=== PATIENT | female | born 1955 | race Caucasian/White ===

== ENCOUNTER 2022-12-31 09:18 | Outpatient (AMB) | payer MEDICARE, OTHER, SELFPAY ==
--- NOTE | 2022-12-31 09:27 | MHC.OFFVIS ---
Intake Vital Signs 12/31/22 09:35 Height 5 ft 7 in Weight 169 lb 15.622 oz BMI 26.6 BP 124/74 Blood Pressure Location Rt brachial Position Sitting Pulse 85 Pulse Source Pulse Oximeter Intake Visit Reasons: Dm2 Intake Note: New patient present today for Diabetes Mellitus. Patient receives [email or web address] stephanie 2 supplies through [employer]. Last Diabetic Eye exam: Due for exam, needs to control blood sugars before next appointment. Last Podiatry Visit: Does not see a Feller Operator Random Glucose: 252 mg/dl HgA1C: 9.6% Patient reports she tried and failed Invokana and Januiva. Solutions Architect Consultant Required: No Accompanied by: Self / Same As Patient Allergies propoxyphene Adverse Reaction (Severe, Verified 12/31/22 09:37) Unknown codeine Adverse Reaction (Intermediate, Verified 12/31/22 09:37) Sweats, Nightmares metformin Adverse Reaction (Unknown, Verified 12/31/22 10:00) Vomiting STERI STRIPS Adverse Reaction (Unknown, Uncoded 12/31/22 09:37) Giant Blisters Medication List - Last Reconciled 12/31/22 by Adrian Russell MD acyclovir 400 mg PO TID blood sugar diagnostic (OneTouch Ultra Test strips) As directed candesartan 8 mg PO DAILY ibuprofen 800 mg PO TID insulin aspart U-100 (Novolog FlexPen U-100 Insulin aspart) 10 - 14 units subcut TID oxybutynin chloride ER 10 mg PO DAILY simvastatin 40 mg PO BEDTIME zolpidem 5 mg PO BEDTIME PRN HPI HPI Comments History of Present Illness Details 67 YO F who is seen in consultation for T2DM at the request of PCP. Initially diagnosed with T2DM in since 2009. Never saw endo Was initially started on treatment with metformin and glipizide .lost too much and nausea and had to stop Current regimen NPH 50 units at night . stopped . Novolog 10-14 units before meals started 3 mos ago Per the CGM Stephanie CGMS is active 80 % of time . data the patient's predicted A1C is []% which is compared to the patients previous A1C [] dated []. Avg glucose is 281 . Variability of The patient's blood sugars were in target 3% of the time, above target 97% of the time, and below target 0% of the time. Pattern shows point cares dropping overnight but rising after breakfast and after dinner Reports low sugars rare . Treats lows with drink juice . Does not recheck Most recent A1C 9,2 , Family history of T2DM in parents and brothers have Type 2 DM . Has eyes checked yearly, last eye exam 09/2021 needs to make appt , denies retinopathy. Has neuropathy,not sees podiatry. Denies nephropathy, on AL/ARB Has HLD, on statin. . Denies CAD. Not Had diabetes education. [facility] Medical History (Updated 12/31/22 @ 09:59 by Adrian Russell MD) Uncontrolled type 2 diabetes mellitus with hyperglycemia Surgical History History of bilateral tubal ligation History of section History of colon resection History of surgery History of surgery History of surgery History of surgery History of surgery Hx of appendectomy Hx of cholecystectomy Hx of rectal sphincterotomy Hx of shoulder surgery Hx of tonsillectomy Hx of total hysterectomy Family History Mother Diabetes Macular degeneration disease Father Diabetes Crohn's disease Colitis Social History (Updated 12/27/22 @ 11:55 by KAIT Marshall) Alcohol intake: current Alcohol intake frequency: holidays/special occasions only Patient Tobacco Use Status: Never used Tobacco Physical Exam Vital Signs: Last Vital Signs Pulse 85 12/31/22 09:35 BP 124/74 12/31/22 09:35 BMI result Body Mass Index 26.6 Absence of Cushingoid features. Absence of acromegalic features. Neck exam reveals nl size thyroid about 15 gms. No thyroid nodules palpable. No carotid bruits present. Lungs CTA. Heart S1 S2, Reg R/R. No M/R/ G. Skin exam reveals absence of vitiligo or acanthosis nigricans. Abdominal exam reveals Soft NT/ND with NA BS. No organomegaly present. Neck Other: . Extrem Other: Visual exam of foot performed. No ulcerations or open lesions. No onchomycosis, no callouses.Pulses 2 + distally Sensation intact to monofilament exam. Vibratory sensation sensed is intact with 128 Hz tuning fork Results AMB Hemoglobin A1c AMB Hemoglobin A1c 9.6 % Last Edit by KAIT Marshall on 12/31/22 10:14 Results Reviewed Results Reviewed: 12/31/22 10:05 Glucose, Whole Blood Routine Laboratory Last Values Glucose (Clinic) 252 mg/dL (60-115) H 12/31/22 10:05 Assessment & Plan Assessment & Plan (1) Uncontrolled type 2 diabetes mellitus with hyperglycemia: Code(s): E11.65 - Type 2 diabetes mellitus with hyperglycemia Plan: This 67 year old female with history of type 2 diabetes being treated with NovoLog insulin and previous intermediate acting insulin NPH with poor glycemic control and no known microvascular or macrovascular complication. Plan is to have the patient scan more frequently with the Stephanie. Will switch Stephanie 3. Will initiate Mounjaro 2.5 mg Q weekly and titrate as tolerated. Went over side effects of Mounjaro including but not limited to nausea, vomiting rare risk of pancreatitis. Will also start Tresiba 20 units HS. Could consider reinitiating metformin and/or an SGLT 2 inhibitor in the future. Will also use correction NovoLog for point care >200 as needed Will schedule patient with certified adapted physical educator and skin toggler. Went over correlation of poor glycemic control with development and progression of complications Mounjaro 2.5 mg samples given to patient lot number [id number] and Tresiba U 100 samples given to patient lot number [id number] expiration date 08/20/2024 Orders: Orders AMB Hemoglobin A1c Today E11.65 - Type 2 diabetes mellitus with hyperglycemia Referrals Diabetes Education Referral E11.65 - Type 2 diabetes mellitus with hyperglycemia Nutrition/Dietitian Referral E11.65 - Type 2 diabetes mellitus with hyperglycemia Medications: New insulin degludec (Tresiba FlexTouch U-100 insulin) 20 units (0.2 mL) subcut BEDTIME 15 mL 4RF tirzepatide (Mounjaro) 2.5 mg (0.5 mL) subcut QWEEK 4 weeks 2 mL 0RF blood-glucose sensor ([employer] Stephanie 3 Sensor device) As directed change every 14 days 2 ea 5RF Coding Level of Care Code New Pt Level 5 (59029) Diagnoses Uncontrolled type 2 diabetes mellitus with hyperglycemia E11.65 Time Spent (min) 60 Comment A total of 60 minutes was spent reviewing chart, seeing patient and dictating
[2022-12-31 09:35] VITALS: BP 124/74; PULSE 85; BMI 26.6
[2022-12-31 10:11] LABS: Glucose, Whole Blood 252 mg/dL (60-115)
== END 2022-12-31 15:19 | disposition home or self-care (01) ==
PROVIDERS: PCP Internal Medicine; Visit Provider Internal Medicine Endocrinology, Diabetes & Metabolism
DX: E11.65 Type 2 diabetes mellitus with hyperglycemia (principal); Z79.4 Long term (current) use of insulin
CPT/HCPCS: 99205

== ENCOUNTER → 2022-12-31 09:18 | Outpatient (BNVA) | payer OTHER, MEDICARE, SELFPAY | PROVIDERS: Visit Provider Internal Medicine Endocrinology, Diabetes & Metabolism | DX: E11.65 Type 2 diabetes mellitus with hyperglycemia (principal); Z83.3 Family history of diabetes mellitus; Z79.4 Long term (current) use of insulin | CPT/HCPCS: 82947; 83036 ==

== ENCOUNTER 2023-01-20 14:07 | Outpatient (AMB) | payer OTHER, MEDICARE, SELFPAY ==
--- NOTE | 2023-01-20 15:08 | MHC.AMDMED ---
Intake Intake Visit Reasons: DM Pleat Patternmaker Required: No Accompanied by: Self / Same As Patient Allergies propoxyphene Adverse Reaction (Severe, Verified 12/31/22 09:37) Unknown codeine Adverse Reaction (Intermediate, Verified 12/31/22 09:37) Sweats, Nightmares metformin Adverse Reaction (Unknown, Verified 12/31/22 10:00) Vomiting STERI STRIPS Adverse Reaction (Unknown, Uncoded 12/31/22 09:37) Giant Blisters HPI Comprehensive Diabetes Asmnt Most Recent Diabetes Results: No Data to Display [facility] Medical History (Updated 12/31/22 @ 09:59 by Adrian Russell MD) Uncontrolled type 2 diabetes mellitus with hyperglycemia Surgical History History of bilateral tubal ligation History of section History of colon resection History of surgery History of surgery History of surgery History of surgery History of surgery Hx of appendectomy Hx of cholecystectomy Hx of rectal sphincterotomy Hx of shoulder surgery Hx of tonsillectomy Hx of total hysterectomy Family History Mother Diabetes Macular degeneration disease Father Diabetes Crohn's disease Colitis Social History Alcohol intake: current Alcohol intake frequency: holidays/special occasions only Patient Tobacco Use Status: Never used Tobacco Assessment & Plan Assessment & Plan (1) Uncontrolled type 2 diabetes mellitus with hyperglycemia: Code(s): E11.65 - Type 2 diabetes mellitus with hyperglycemia Plan: Learning objectives: The patient was provided with verbal and written education on the following topics as outlined below. Patient questions/concerns, patient reports she has had diabetes for 15-20 years, however states she was in denial for approximately 10 years. Last A1c on 12/31/2022 9.6% At last visit patient was started on Mounjaro 2.5 mg, Tresiba 20 units, patient stated Dr. Russell also has trended reinitiate metformin but patient did not due to GI side effects in the past. Currently reports she has been experiencing nausea and diarrhea. Has completely lost the desire for food. Would like to continue on Mounjaro 2.5 mg for now to see if her body will tolerate medication. Reports that when her glucose level drops below 150 mg/dL she begins to experience symptoms of hypoglycemia. She has been using Stephanie 3 to test glucose Patient's average glucose for the past 2 weeks 152 mg/dL 15% above target 85% at target 0% below target Because she has been experiencing symptoms of hypoglycemia recommended at this visit that she temporarily reduce Tresiba 20 units to Tresiba 15 units to see if that eliminates symptoms. Instructed patient once her body to acclimates to lower average glucose she can increase Tresiba back to 20 units The patient met all learning objectives and was able to verbalize understanding and provide teach back of education topics discussed . The patient was provided with the opportunity to ask questions and all questions were answered. Topics covered in today?s session included: Medications (If applicable) ? Name of medication? Dosing/administration instructions? Mechanism of action? Potential side effects? Potential adverse reaction and appropriate treatment? Review onset, peak, duration Assess for concerns re: insurance coverage, cost, barriers to compliance Insulin/Injectables (If applicable) ? Storage/care of insulin? Injection sites? Site rotation? Onset, peak, duration ? Drawing up insulin? Injecting insulin/other injectables? Sharps disposal Continuous blood glucose monitoring (if applicable) Hypoglycemia and Hyperglycemia ? Signs and symptoms? Causes? Treatment? Preventing hypoglycemia? When to seek medical attention ?Blood glucose targets and how you feel when your blood glucose is in and out of your target ranges. ?Monitoring and knowing your A1C. ?What can make blood glucose go up and down and preventing high and low blood glucose. ?Review of blood sugar targets in expected goal range and outside of expected goal range. ?Problem solving and preventing hyper/hypoglycemia. ?Sick day management of diabetes. ?Using blood sugar results in decision making process in managing diabetes. ?Patient was receptive to information provided and participated in the discussion. Asked?appropriate questions and demonstrated good understanding of the topics discussed.? ? Educational Materials: The patient was provided with the following written educational materials: Target Goal handout Smart Goal: Patient will continue with Mounjaro for 2 weeks, to see if GI side effects improved Patient given sample of Stephanie 3 sensor, while waiting for insurance to approve Dexcom G6 sensor Instructed patient if she needs assistance setting up Dexcom G6 to make appointment with simulation educator Patient Instructions: Follow-up with simulation educator in 6 weeks Coding Level of Care Code Est Pt Level 1 (26695) Diagnoses Uncontrolled type 2 diabetes mellitus with hyperglycemia E11.65
== END 2023-01-20 15:18 | disposition home or self-care (01) ==
PROVIDERS: PCP Internal Medicine; Visit Provider Registered Nurse Diabetes Educator
DX: E11.65 Type 2 diabetes mellitus with hyperglycemia (principal)

== ENCOUNTER → 2023-01-20 14:07 | Outpatient (BNVA) | payer OTHER, MEDICARE, SELFPAY | PROVIDERS: PCP Internal Medicine; Visit Provider Registered Nurse Diabetes Educator | DX: E11.65 Type 2 diabetes mellitus with hyperglycemia (principal) | CPT/HCPCS: 99211 ==

== ENCOUNTER 2023-04-07 13:48 | Outpatient (AMB) | payer MEDICARE, OTHER, SELFPAY ==
--- NOTE | 2023-04-07 13:50 | A.OFFVIS_ITS ---
Intake Vital Signs 04/07/23 13:51 Height 5 ft 7 in Weight 157 lb 10.088 oz BMI 24.7 BP 112/66 Blood Pressure Location Lt brachial Position Sitting Pulse 92 Pulse Source Pulse Oximeter Intake Visit Reasons: DM Intake Note: Patient present today to follow up on Type 2 Diabetes Mellitus. Last Diabetic Eye exam: 03/24/2023 Last Podiatry Visit: None Random Glucose: 113 mg/dl HgA1C:6.3% Clinical Practitioner Required: No Accompanied by: Self / Same As Patient Allergies propoxyphene Adverse Reaction (Severe, Verified 04/07/23 14:01) Unknown codeine Adverse Reaction (Intermediate, Verified 04/07/23 14:01) Sweats, Nightmares metformin Adverse Reaction (Unknown, Verified 04/07/23 14:01) Vomiting STERI STRIPS Adverse Reaction (Unknown, Uncoded 12/31/22 09:37) Giant Blisters Medication List - Last Reconciled 04/07/23 by Adrian Russell MD acyclovir 400 mg PO TID blood sugar diagnostic (OneTouch Ultra Test strips) As directed blood-glucose meter,continuous (Dexcom G6 Mobile Crane Operator) As directed blood-glucose sensor (Dexcom G6 Sensor device) As directed change every 10 days blood-glucose sensor ([employer] Stephanie 3 Sensor device) As directed change every 14 days blood-glucose transmitter (Dexcom G6 Transmitter device) As directed candesartan 8 mg PO DAILY ibuprofen 800 mg PO TID insulin degludec (Tresiba FlexTouch U-100 insulin) 20 units (0.2 mL) subcut BEDTIME oxybutynin chloride ER 10 mg PO DAILY simvastatin 40 mg PO BEDTIME tirzepatide (Mounjaro) 2.5 mg (0.5 mL) subcut QWEEK 4 weeks zolpidem 5 mg PO BEDTIME PRN HPI HPI Comments History of Present Illness Details 67 YO F who is seen in consultation for T2DM at the request of PCP. Initially diagnosed with T2DM in since 2009. Never saw endo Was initially started on treatment with metformin and glipizide .lost too much and nausea and had to stop Current regimen Tresiba 20 units Mounjaro 2.5 mg Qwkly Per the CGM Stephanie CGMS is active 99 % of time . data the patient's predicted A1C is 6.9% Avg glucose is 149 . Variability of 23.7 The patient's blood sugars were in target 82% of the time, above target 18% of the time, and below target 0% of the time. Reports low sugars rare . Treats lows with drink juice . Does not recheck Most recent A1C 6.3 Family history of T2DM in parents and brothers have Type 2 DM . Has eyes checked yearly, last eye exam 09/2021 needs to make appt , denies retinopathy. Has neuropathy,not sees podiatry. Denies nephropathy, on AL/ARB Has HLD, on statin. . Denies CAD. Not Had diabetes education. [facility] Medical History (Updated 12/31/22 @ 09:59 by Adrian Russell MD) Uncontrolled type 2 diabetes mellitus with hyperglycemia Surgical History History of surgery History of surgery Hx of rectal sphincterotomy Hx of shoulder surgery Hx of cholecystectomy History of surgery History of surgery Hx of tonsillectomy History of surgery History of colon resection Hx of total hysterectomy History of bilateral tubal ligation Hx of appendectomy History of section Family History Mother Diabetes Macular degeneration disease Father Diabetes Crohn's disease Colitis Social History Alcohol intake: current Alcohol intake frequency: holidays/special occasions only Patient Tobacco Use Status: Never used Tobacco Physical Exam Vital Signs: Last Vital Signs Pulse 92 04/07/23 13:51 BP 112/66 04/07/23 13:51 BMI result Body Mass Index 24.7 Absence of Cushingoid features. Absence of acromegalic features. Neck exam reveals nl size thyroid about 15 gms. No thyroid nodules palpable. No carotid bruits present. Lungs CTA. Heart S1 S2, Reg R/R. No M/R/ G. Skin exam reveals absence of vitiligo or acanthosis nigricans. Abdominal exam reveals Soft NT/ND with NA BS. No organomegaly present. Neck Other: . Extrem Other: Visual exam of foot performed. No ulcerations or open lesions. No onchomycosis, no callouses.Pulses 2 + distally Sensation intact to monofilament exam. Vibratory sensation sensed is intact with 128 Hz tuning fork Assessment & Plan Assessment & Plan (1) Uncontrolled type 2 diabetes mellitus with hyperglycemia: Code(s): E11.65 - Type 2 diabetes mellitus with hyperglycemia Plan: This 67 year old female with history of type 2 diabetes being treated with Mounjaro and basal insulin with excellent improved glycemic control and no known microvascular or macrovascular complication. Plan is to increase the Mounjaro to 5 mg Qwkly and decrease the Tresiba to 10 units and discontinue the Tresiba if hypoglycemia occurs Orders: Orders AMB Hemoglobin A1c Today E11.65 - Type 2 diabetes mellitus with hyperglycemia Coding Level of Care Code Est Pt Level 4 (21329) Diagnoses Uncontrolled type 2 diabetes mellitus with hyperglycemia E11.65
[2023-04-07 13:51] VITALS: BP 112/66; PULSE 92; BMI 24.7
[2023-04-07 14:02] LABS: Glucose, Whole Blood 113 mg/dL (60-115)
== END 2023-04-07 14:33 | disposition home or self-care (01) ==
PROVIDERS: PCP Internal Medicine; Visit Provider Internal Medicine Endocrinology, Diabetes & Metabolism
DX: E11.65 Type 2 diabetes mellitus with hyperglycemia (principal)
CPT/HCPCS: 99214

== ENCOUNTER → 2023-04-07 13:48 | Outpatient (BNVA) | payer OTHER, MEDICARE, SELFPAY | PROVIDERS: PCP Internal Medicine; Visit Provider Internal Medicine Endocrinology, Diabetes & Metabolism | DX: E11.65 Type 2 diabetes mellitus with hyperglycemia (principal); E11.40 Type 2 diabetes mellitus with diabetic neuropathy, unspecified; E78.5 Hyperlipidemia, unspecified; Z83.3 Family history of diabetes mellitus; Z79.4 Long term (current) use of insulin; Z79.899 Other long term (current) drug therapy | CPT/HCPCS: 82947; 83036; 99212 ==

== ENCOUNTER 2024-10-18 15:00 | Outpatient (AMB) | payer MEDICARE, OTHER, SELFPAY ==
--- OUTSIDE RECORDS SUMMARY | 2024-10-18 15:03 | XMS_ITS | Data Portability ---
Author Organization [place] - [facility], [place] Address [address] [place] [address] Assessment Encounter Date Assessment Date Assessment LastModified by Organization Details LastModified Time 12/22/2023 12/22/2023 3 view(s) of the left hand were ordered, obtained and interpreted from an orthopaedic standpoint at [facility]. The x-rays were reviewed and demonstrate IMAGING: Radiographs of the patient's left hand are within normal limits for her age. There is no evidence of a subacute or even healed bony injury. ASSESSMENT: 1. Resolving contusion, left hand. PLAN: The patient is advised to continue with activities as tolerated. She is to follow up as needed with any questions, problems, or concerns, which are not expected. [id number] Not available 12/26/2023 05:52:36 Plan of Treatment Reminders Order Date Submit Date Provider Last Modified By Organization Details Last Modified Time Details Appointments None record ed. Lab None record ed. Referral None record ed. Procedures None record ed. Surgeries None record ed. Imaging XR, hand, 3 or more view 024 12/22/19 24 [email or web address] [facility], [address] [place] [address], [facility] [address], [place], [address], 4 16:12:04 Medication Orders None record ed. Patient TargetsNo targets recorded. Patient InstructionsNo instructions recorded. Reason for Referral None Reported. Results Created Date Observation Date Name Description Value Unit Range Abnormal Flag Note LastModifiedBy Organization Detail LastModifiedTime 12/22/19 24 12/22/2023 XR, hand, 3 or more view [facility] eUID=1 .[id number] .[id number] 7.3442 [id number] 09.355 [id number] INTERFACE [facility] [address], [place], [address], 12/22/2023 11:14:32 12/22/19 24 12/22/2023 XR, hand, 3 or more view [facility] eUID=1 .[id number] .[id number] 7.3442 [id number] .[id number] 09.355 3.6284 [facility] [address], [place], [address], 12/22/2023 11:14:34 Result Notes None recorded. Problems Name Problem SNOMED Code Status Onset Date Resolution Date Notes Provider Name and Address Organization Details Recorded Time Diabetes mellitus [id number] Active 2021 Problem Code: 250.0; Problem Code Type: ICD-9; Not Available [facility] 3 11:34:24 Type 2 diabetes mellitus without complicat ion 960454966 Active 2021 Problem Code: 250.00; Problem Code Type: ICD-9; Not Available [facility] 3 11:34:24 Pure hyperchol esterolem [place] 882498263 Active 2021 Problem Code: 272.0; Problem Code Type: ICD-9; Not Available [facility] 3 11:34:24 Essential hypertens ion 41714676 Active 2021 Problem Code: 401.9; Problem Code Type: ICD-9; Not Available [facility] 3 11:34:24 Asthma 584214412 Active 2021 Problem Code: 493.9; Problem Code Type: ICD-9; Not Available [facility] 3 11:34:24 Pain of left hand 581034212198 103 Active 2023 ANDREW CUADRA [facility] 4 11:11:18 Primary apnea in the 489375514 Active 2021 Problem Code: 770.81; Problem Code Type: ICD-9; Not Available [facility] 3 06:53:08 Problem Notes None recorded. Medical Equipment None Reported. Medications Name Sig Start Date Stop Date Status Note LastModified by Organization Details LastModified Time azithromycin 250 mg tablet TAKE 2 TABLETS BY MOUTH TODAY, THEN TAKE 1 TABLET DAILY FOR 4 DAYS DIRECTED active Not Available Not Available No t Available prednisone 20 mg tablet TAKE 2 TABLETS BY MOUTH ONCE A DAY X 5 DAYS, THEN TAKE 1 TABLET ONCE A DAY X 3 DAYS. active Not Available Not Available No t Available metronidazol e 500 mg tablet TAKE 1 TABLET BY MOUTH 3 TIMES A DAY FOR 7 DAYS active Not Available Not Available N ot Available ciprofloxaci n 500 mg tablet TAKE 1 TABLET BY MOUTH TWICE A DAY FOR 7 DAYS active Not Available Not Available No t Available lorazepam 0.5 mg tablet TAKE 1 TABLET BY MOUTH EVERY DAY NEEDED FOR ANXIETY active Not Available Not Available No t Available benzonatate 100 mg capsule TAKE 1 CAPSULE ORALLY THREE TIMES A DAY NEEDED FOR COUGH active Not Available Not Available No t Available zolpidem 5 mg tablet TAKE 1 TABLET BY MOUTH AT BEDTIME NEEDED FOR INSOMNIA active Not Available Not Available No t Available loratadine 10 mg tablet TAKE 1 TABLET BY MOUTH EVERY DAY NEEDED ALLERGY SYMPTOMS active Not Available Not Available No t Available mirtazapine 7.5 mg tablet TAKE 1 TABLET BY MOUTH EVERYDAY AT BEDTIME active Not Available Not Available No t Available Tresiba FlexTouch U-100 insulin 100 unit/mL (3 mL) subcutaneous pen INJECT 20 UNITS SUBQ AT BEDTIME active Not Available Not Available N ot Available Ozempic 0.25 mg or 0.5 mg (2 mg/3 mL) subcutaneous pen injector 0.25 MG (0.368 ML) SUBCUTANEOU SLY EVERY WEEK FOR 4 WEEKS active Not Available Not Available No t Available Vitals None Recorded Social History None recorded. Functional Status None recorded. Mental Status None recorded. Family History Nothing Reported. Medical History No medical history recorded. Gynecological HistoryNo gynecological history recorded. Obstetrics History GPAL:G 0 P 0 0 0 0 Past Encounters Encounter ID Performer Location Encounter Start Date Encounter Closed Date Diagnosis/Indication Diagnosis SNOMED-CT Code Diagnosis ICD10 Code Diagnosis Note [id number] Brad Leiva MD [address] [id number] 12/22/2023 10:28:09 12/22/2023 16:12:04 Pain of left hand [id number] 86624 M79.642 Health Concerns Section Related Observation LastModified by Organization Detai ls LastModified Time None Recorded Concern Status LastModified by Organization Details LastModified Time None Recorded Advance Directives Directive None Recorded Payers Insurance Date Sequence Insurance Name Policy Number Policy Bender Covered Member ID Bender Member ID Guarantor Name 01/24/2024 2 [employer] (EPO) Lisandra Ibanez [id number] oMi Ibanez 12/22/2023 1 [place]ARE-[place] - [employer] (MEDICARE) Sarai Ibanez [id number] Moi Ibanez Notes Date Note Type Note Provider Name and Address Organization Details Recorded Time 12/22/2023 text/html Moi Ibanez, a 68-year-old female, presents to the clinic for a hand injury. She reports that she struck the dorsal radial aspect of her left hand three months ago, which resulted in swelling, pain, and dysfunction. Over time, these symptoms have gradually diminished, and she estimates that she has seen a 75 to 80% improvement. However, she continues to experience pain over the dorsal radial hand. Brad Leiva MD [address] [place] [address], [phone] 01/02/2024 06:04:15 OBGyn Episode No OBEpisode recorded.
--- NOTE | 2024-10-18 15:09 | A.OFFVIS_ITS ---
Vital Signs 10/18/24 15:13 Height 5 ft 7 in Weight 167 lb 1.766 oz BMI 26.2 BP 112/70 Blood Pressure Location Rt brachial Position Sitting Pulse 82 Pulse Source Pulse Oximeter Pulse Oximetry (%) 96 Oxygen Delivery Method Room Air Intake Visit Reasons: f/u Type 2 DM Intake Note: Patient present today to follow up on Diabetes Mellitus, last seen on 04/07/2023. Patient is receiving Stephanie 2 supplies through: [facility], needs to upgrade to Stephanie 2 plus or Stephanie 3 plus. Last Diabetic Eye exam: Last month, [facility] Last Podiatry Visit: Does not see a Stock Ranch Supervisor Random Glucose: 213 mg/dl HgA1C: 8.8% 10/18/2024 Migration Specialist Required: No Accompanied by: Self / Same As Patient Allergies propoxyphene Adverse Reaction (Severe, Verified 10/18/24 15:15) Unknown codeine Adverse Reaction (Intermediate, Verified 10/18/24 15:15) Sweats, Nightmares metformin Adverse Reaction (Unknown, Verified 10/18/24 15:15) Vomiting STERI STRIPS Adverse Reaction (Unknown, Uncoded 10/18/24 15:15) Giant Blisters HPI Comments Details: 68 YO F who is seen in consultation for T2DM at the request of PCP. Initially diagnosed with T2DM in since 2009. Was initially started on treatment with metformin and glipizide .lost too much and nausea and had to stop Current regimen Tresiba 30 units Novolog 8 units TID Ozempic 0.25 mg Qwkly not taking Per the CGM [facility] CGMS is active 57 % of time . data the patient's predicted A1C is 8.2% Avg glucose is 205 . Variability of 27.1 The patient's blood sugars were in target 37% of the time, above target 63% of the time, and below target 0% of the time. Pen shows elevation of blood sugar post-breakfast would sustain hyperglycemia throughout the day there is a trend downward overnight Reports low sugars rare . Treats lows with drink juice . Does not recheck Most recent A1C 8.5 today Family history of T2DM in parents and brothers have Type 2 DM . Has eyes checked yearly, last eye exam 1 mo ago , denies retinopathy. Has neuropathy,not sees podiatry. Denies nephropathy, on AL/ARB Has HLD, on statin. . Denies CAD. Had diabetes education. [facility] Medical History (Updated 12/31/22 @ 09:59 by Adrian Russell MD) Uncontrolled type 2 diabetes mellitus with hyperglycemia Surgical History Hx of tooth extraction History of surgery History of surgery Hx of rectal sphincterotomy Hx of shoulder surgery Hx of cholecystectomy History of surgery History of surgery Hx of tonsillectomy History of surgery History of colon resection Hx of total hysterectomy History of bilateral tubal ligation Hx of appendectomy History of section Family History Mother Diabetes Macular degeneration disease Father Diabetes Crohn's disease Colitis Social History Alcohol intake: current Alcohol intake frequency: holidays/special occasions only Patient Tobacco Use Status: Never used Tobacco Physical Exam Vital Signs: BMI result Body Mass Index 26.2 Absence of Cushingoid features. Absence of acromegalic features. Neck exam reveals nl size thyroid about 15 gms. No thyroid nodules palpable. No carotid bruits present. Lungs CTA. Heart S1 S2, Reg R/R. No M/R/ G. Skin exam reveals absence of vitiligo or acanthosis nigricans. Abdominal exam reveals Soft NT/ND with NA BS. No organomegaly present. Neck Other: . Extrem Other: Visual exam of foot performed. No ulcerations or open lesions. No onchomycosis, no callouses.Pulses 2 + distally Sensation intact to monofilament exam. Vibratory sensation sensed is intact with 128 Hz tuning fork Results AMB Hemoglobin A1c AMB Hemoglobin A1c 8.8 % Last Edit by KAIT Marshall on 10/18/24 15:42 Assessment & Plan Assessment & Plan (1) Uncontrolled type 2 diabetes mellitus with hyperglycemia: Code(s): E11.65 - Type 2 diabetes mellitus with hyperglycemia Category: Medical Plan: This 67 year old female with history of type 2 diabetes being treated with Ozempic and basal insulin with poor deteriorated glycemic control and no known microvascular or macrovascular complication. Plan is to change Stephanie 2 to Stephanie 3+ for continuous glucose monitoring. We will also re add Mounjaro 2.5 mg Q weekly. Patient previously tried Ozempic and was intolerant and also did not have any efficacy. She had excellent glycemic control and basal insulin and Mounjaro in the past. We will have her follow up with the primary care diabetes team in 4 weeks and also follow up with CDE prior to that Orders: Orders AMB Hemoglobin A1c Today E11.65 - Type 2 diabetes mellitus with hyperglycemia Referrals Diabetes Education Referral E11.65 - Type 2 diabetes mellitus with hyperglycemia Medications: New tirzepatide (Mounjaro) for 4 weeks 2.5 mg (0.5 mL) subcut QWEEK 2 mL 4RF Discontinued semaglutide (Ozempic) for 4 weeks Discontinued Reason: Doctor's Order 0.25 mg (0.368 mL) subcut QWEEK 3 mL 5RF Coding Level of Care Code Est Pt Level 4 (62209) Complex EM visit Add On G2211 Diagnoses Uncontrolled type 2 diabetes mellitus with hyperglycemia E11.65
[2024-10-18 15:13] VITALS: BP 112/70; PULSE 82; O2SAT 96; BMI 26.2
[2024-10-18 15:34] LABS: Glucose, Whole Blood 213 mg/dL (60-115)
== END 2024-10-18 15:51 | disposition home or self-care (01) ==
LOC: HO.ENCR 15:01
PROVIDERS: PCP Internal Medicine; Visit Provider Internal Medicine Endocrinology, Diabetes & Metabolism
DX: E11.65 Type 2 diabetes mellitus with hyperglycemia (principal)
CPT/HCPCS: 99214; G2211

== ENCOUNTER → 2024-10-18 15:00 | Outpatient (BNVA) | payer MEDICARE, OTHER, SELFPAY | PROVIDERS: PCP Internal Medicine; Visit Provider Internal Medicine Endocrinology, Diabetes & Metabolism | DX: E11.65 Type 2 diabetes mellitus with hyperglycemia (principal) | CPT/HCPCS: 82947; 83036; 99212 ==

== ENCOUNTER 2024-12-27 10:31 | Outpatient (AMB) | payer MEDICARE, OTHER, SELFPAY ==
--- NOTE | 2024-12-27 10:51 | MHC.OFFVIS ---
Vital Signs 12/27/24 10:53 Height 5 ft 7 in Weight 159 lb 13.362 oz BMI 25.0 BP 124/68 Blood Pressure Location Rt brachial Position Sitting Pulse 68 Pulse Source Pulse Oximeter Pulse Oximetry (%) 98 Oxygen Delivery Method Room Air Intake Visit Reasons: f/u Type 2 DM Intake Note: Patient present today to follow up on Diabetes Mellitus. Mounjaro not covered will like to discuss about Arcabose. Last Diabetic Eye exam: August 2024, [facility] Last Podiatry Visit: Does not see a Residential Door Installer Random Glucose: 151 mg/dl HgA1C: 8.8% 10/18/2024 Business Process Analyst Required: No Accompanied by: Self / Same As Patient Allergies propoxyphene Adverse Reaction (Severe, Verified 12/27/24 10:53) Unknown codeine Adverse Reaction (Intermediate, Verified 12/27/24 10:53) Sweats, Nightmares metformin Adverse Reaction (Unknown, Verified 12/27/24 10:53) Vomiting STERI STRIPS Adverse Reaction (Unknown, Uncoded 12/27/24 10:53) Giant Blisters Medication List - Last Reconciled 12/27/24 by Adrian Russell MD acyclovir 400 mg PO TID blood sugar diagnostic (OneTouch Ultra Test strips) As directed candesartan 8 mg PO DAILY flash glucose scanning reader (FreeStyle Stephanie 2 [place]) As directed flash glucose sensor (FreeStyle Stephanie 2 Sensor kit) As directed change every 14 days ibuprofen 800 mg PO TID insulin aspart U-100 (Novolog FlexPen U-100 Insulin aspart) 8 units subcut TID insulin degludec (Tresiba FlexTouch U-100 insulin) 20 units (0.2 mL) subcut BEDTIME 90 days linaclotide (Linzess) 145 mcg PO DAILY loratadine 10 mg PO DAILY oxybutynin chloride ER 10 mg PO DAILY simvastatin 40 mg PO BEDTIME tirzepatide (Mounjaro) 2.5 mg (0.5 mL) subcut QWEEK zolpidem 5 mg PO BEDTIME PRN HPI Comments Details: 69 YO F who is seen in consultation for T2DM at the request of PCP. Initially diagnosed with T2DM in since 2009. Was initially started on treatment with metformin and glipizide .lost too much and nausea and had to stop Current regimen Tresiba 28 units Novolog 8 units TID Mounjaro 2.5 mg Qwkly insurance denied . Also having gastrointestinal issues that might require colorectal surgery Lost 8 lbs Per the CGM Stephanie CGMS is active 86 % of time . data the patient's predicted A1C is 7.3% Avg glucose is 166 . Variability of 29.1 The patient's blood sugars were in target 64% of the time, above target 36% of the time, and below target 0% of the time. Pattern shows elevation of blood sugar post-breakfast would sustain hyperglycemia throughout the day there is a trend downward overnight Reports low sugars rare . Treats lows with drink juice . Does not recheck Family history of T2DM in parents and brothers have Type 2 DM . Has eyes checked yearly, last eye exam 1 mo ago , denies retinopathy. Has neuropathy,not sees podiatry. Denies nephropathy, on AL/ARB Has HLD, on statin. . Denies CAD. [facility] diabetes education. [facility] Medical History (Updated 12/31/22 @ 09:59 by Adrian Russell MD) Uncontrolled type 2 diabetes mellitus with hyperglycemia Surgical History Hx of tooth extraction History of surgery History of surgery Hx of rectal sphincterotomy Hx of shoulder surgery Hx of cholecystectomy History of surgery History of surgery Hx of tonsillectomy History of surgery History of colon resection Hx of total hysterectomy History of bilateral tubal ligation Hx of appendectomy History of section Family History Mother Diabetes Macular degeneration disease Father Diabetes Crohn's disease Colitis Social History Alcohol intake: current Alcohol intake frequency: holidays/special occasions only Patient Tobacco Use Status: Never used Tobacco Physical Exam Vital Signs: Last Vital Signs Pulse 68 12/27/24 10:53 BP 124/68 12/27/24 10:53 Pulse Ox 98 12/27/24 10:53 Oxygen Delivery Method Room Air 12/27/24 10:53 BMI result Body Mass Index 25.0 Absence of Cushingoid features. Absence of acromegalic features. Neck exam reveals nl size thyroid about 15 gms. No thyroid nodules palpable. No carotid bruits present. Lungs CTA. Heart S1 S2, Reg R/R. No M/R/ G. Skin exam reveals absence of vitiligo or acanthosis nigricans. Abdominal exam reveals Soft NT/ND with NA BS. No organomegaly present. Neck Other: . Extrem Other: Visual exam of foot performed. No ulcerations or open lesions. No onchomycosis, no callouses.Pulses 2 + distally Sensation intact to monofilament exam. Vibratory sensation sensed is intact with 128 Hz tuning fork Results Reviewed Results Reviewed: Laboratory Last Values Glucose (Clinic) 151 mg/dL (60-115) H 12/27/24 10:59 Assessment & Plan Assessment & Plan (1) Uncontrolled type 2 diabetes mellitus with hyperglycemia: Code(s): E11.65 - Type 2 diabetes mellitus with hyperglycemia Category: Medical Plan: This 67 year old female with history of type 2 diabetes being treated with Mounjaro and basal insulin with good improved deteriorated glycemic control and no known microvascular or macrovascular complication. Plan is to increase the NovoLog to 12 units before breakfast. Will have patient check lipid profile and microalbumin to creatinine ratio. Will have patient follow up with primary care diabetes team in 2 months Orders: Orders Lipid Panel Today E11.65 - Type 2 diabetes mellitus with hyperglycemia Microalbumin, Random (w Creat) Today E11.65 - Type 2 diabetes mellitus with hyperglycemia Medications: New insulin aspart U-100 (Novolog FlexPen U-100 Insulin aspart) 8 units (0.08 mL) subcut TID 15 mL 5RF Refilled insulin degludec (Tresiba FlexTouch U-100 insulin) 20 units (0.2 mL) subcut BEDTIME 45 mL 3RF 90 days E11.65 - Type 2 diabetes mellitus with hyperglycemia Coding Level of Care Code Est Pt Level 4 (60589) Complex EM visit Add On G2211 Diagnoses Uncontrolled type 2 diabetes mellitus with hyperglycemia E11.65
[2024-12-27 10:53] VITALS: BP 124/68; PULSE 68; O2SAT 98; BMI 25.0
[2024-12-27 11:03] LABS: Glucose, Whole Blood 151 mg/dL (60-115)
--- OUTSIDE RECORDS SUMMARY | 2024-12-27 11:06 | XMS_ITS | Clinical Summary ---
Author Organization [address] Address [address] [place] [address] Phone Care Team Providers Care Warehouse Operations Associate Name Role Phone Cyndy Montes MD Primary Care Provider Allergies Active Allergy Reactions Criticality Noted Date Comments Codeine 10/13/2021 Duloxetine 07/26/2022 Propoxyphene 10/13/2021 Omeprazole Rash 07/26/2022 Other 10/13/2021 All fresh fruit, all fresh vegetables, and seasonal. Rodriguez's cant take anything for the acid but tums Medications oxybutynin XL (DITROPAN-XL) 10 mg 24 hr tablet at bedtime. 2 Active simvastatin (ZOCOR) 40 mg tablet Take 40 mg by mouth at bedtime. Active ibuprofen (ADVIL,MOTRIN) 800 mg tablet at bedtime. 2 Active zolpidem (AMBIEN) 5 mg tablet at bedtime. 2 Active loratadine (CLARITIN) 10 mg tablet Take 10 mg by mouth 1 (one) time each day. Active valACYclovir (VALTREX) 1 gram tablet TAKE 2 TABLETS BY MOUTH TWICE A DAY FOR 1 DAY NEEDED 2 Active diclofenac sodium 3 % gelIndications: Neck pain, chronic Apply topically 2 (two) times a day. 30 g 1 2 Active candesartan (Atacand) 8 mg tablet Take 1 tablet (8 mg total) by mouth 1 (one) time each day. 30 each 11 2 Active insulin NPH, Isophane, (HumuLIN N) 100 unit/mL injection Inject 52 Units under the skin 2 (two) times a day before meals. Vials should be rolled between palms of hands ten times prior to each use. Active Active Problems Problem Noted Date Diagnosed Date Obstructive sleep apnea 09/17/2022 Snoring 07/26/2022 Somnolence, daytime 07/26/2022 Insomnia 07/26/2022 Surgical History Surgery Date Site/Laterality Comments SECTION APPENDECTOMY TUBAL LIGATION HYSTERECTOMY TOTAL CERVIX REMOVED COLECTOMY TONSILLECTOMY KNEE ARTHROSCOPY W/ MENISCAL REPAIR GALLBLADDER CARPAL TUNNEL RELEASE SHOULDER ARTHROSCOPY Medical History Medical History Date Comments Diabetes mellitus ([facility] V24, [facility] V28) Hypertension Hyperlipidemia Social History Tobacco Use Types Packs/Day Years Used Date Smoking Tobacco: Never Smokeless Tobacco: Never Alcohol Use Standard Drinks/Week Comments Yes 0 (1 standard drink = 0.6 oz pur e alcohol) socially Comments Unknown Sex and Gender Information Value Date Recorded Sex Assigned at Not on file Legal Sex Female 4:31 PM EDT Gender Identity Not on file Sexual Orientation Not on file Obstetrics History Last Filed Vital Signs Vital Sign Reading Time Taken Comments Blood Pressure 120/70 09/17/2022 2:43 PM EDT Pulse 94 09/17/2022 2:43 PM EDT Temperature - - Respiratory Rate 16 09/17/2022 2:43 PM EDT Oxygen Saturation 94% 09/17/2022 2:43 PM EDT Inhaled Oxygen Concentration - - Weight 75.1 kg (165 lb 8 oz) 07/26/2022 9:51 AM EST Height 170.2 cm (5' 7 ) 07/26/2022 9:51 AM EST Body Mass Index 25.92 07/26/2022 9:51 AM EST Plan of Treatment Health Maintenance Due Date Last Done Comments Breast Cancer Screening 1955 Diabetes: Annual GFR (Glomer ular Filtration Rate) 1956 Diabetes: Annual Foot Exam 1966 Diabetes: Annual Retina Eye Exam 1966 DTaP,Tdap,and Td Vaccines (1 - Tdap) 11/03/1975 Pneumococcal Vaccine: 50+ Ye ars (1 of 1 - PCV) 2006 Zoster Vaccines (1 of 2) 2006 RSV Immunization Adult Patie nts (1 - Risk 60-74 years 1-dose series) 2016 Cholesterol Screening (Lipid Panel) 06/24/2021 Colorectal Cancer Screening: Colonoscopy 06/24/2021 Hepatitis C Screening 06/24/2021 Medicare Annual Wellness Visit 06/24/2021 Osteoporosis Screening (Bone Density Screening) 06/24/2021 Social Influencers of Health Screening 06/24/2021 Falls Risk Assessment 2021 Diabetes: Annual Urine Albumin-Creatinine Ratio (uACR) 04/09/2022 Diabetes: Blood Sugar Contro l Test (HGBA1C) 04/09/2022 Hypertension/CHF/CAD Annual BMP Blood Test 04/09/2022 COVID-19 Vaccine (2023-2 5 season) 2024 Depression Screening 05/23/2024 Influenza Vaccine (#1) 2025 HIB Vaccines Aged Out No longer eligi ble based on patient's age to complete this topic HPV Vaccines Aged Out No longer eligi ble based on patient's age to complete this topic Hepatitis A Vaccines Aged Out No long er eligible based on patient's age to complete this topic Hepatitis B Vaccines Aged Out No long er eligible based on patient's age to complete this topic IPV Vaccines Aged Out No longer eligi ble based on patient's age to complete this topic MMR Vaccines Aged Out No longer eligi ble based on patient's age to complete this topic Meningococcal ACWY Vaccine Aged Out N o longer eligible based on patient's age to complete this topic Meningococcal B Vaccine Aged Out No l onger eligible based on patient's age to complete this topic RSV Immunization Patients Un do 20 months Aged Out No longer eligible b ased on patient's age to complete this topic Varicella Vaccines Aged Out No longer eligible based on patient's age to complete this topic Insurance [facility] MEDICARE Care Teams Warehouse Operations Associate Relationship Specialty Start Date End Date Cyndy Montes MD [address] [place] [id number] PCP - General Internal Medicine 06/29/21
--- OUTSIDE RECORDS SUMMARY | 2024-12-27 11:06 | XMS_ITS | Patient Health Record ---
Author Organization [facility] Address [address] [place] [id number] Care Team Providers Care Director Translational Name Role Phone ISABELLNOAH Primary Care Provider SYEDA Youngblood Unavailable [phone] Allergies Allergen (clinical drug ingredient) Drug/Non Drug Allergy documented on EMR Reaction Allergy Type Onset Date Status darvon (uncoded) Unknown Allergy Act trevor fresh fruits (uncoded) Unknown Allergy Active hayfever (uncoded) Unknown Allergy A ctive Reason For Referral No Information Medications Medication SIG (Take, Route, Fr equency, Duration) Notes Start Date End Date Status Diovan Active Ultracet 325 mg-37.5 mg 1 tab(s) orally every 4 hours-6hrs prn pain; Duration: 0 03/13/2012 Active Ambien 5mg Active Plan Of Treatment Pending Test Test Name Order Date MRI : Knee, right 02/24/2012 Insurance Providers Payer Name Payer Address Payer Phone Subscriber Number Group Number Insured Name Patient Relationship to Insured Coverage Start Date Coverage End Date [employer] [address] [place], [place] [id number] [phone] [id number] OMAR HERNANDEZ Self - patient is the insured [facility] [address] [place], [place] [phone] [id number] MILI HERNANDEZ Spouse - patient is the spouse of the insured Medical (General) History Medical History History ICD Code asthma high cholesterol High blood pressure diabetes mellitus Surgical History Surgery Date(Month/Year) Hysterectomy 1995 , appendix 1984 carpal tunnel b/l hands shoulder slap & pinned knee scoped 2009 colon resectioned 2001 & 2003
--- OUTSIDE RECORDS SUMMARY | 2024-12-27 11:06 | XMS_ITS | Encounter Summary ---
Author Organization [employer] Address [address] [place] [address] [address] [place] [address] Care Team Providers Care Pizzamaker Name Role Phone Dom Miranda Unavailable [phone] [facility] Unavailable Encounter Details Date Type Department Care Team (Latest Contact Info) Description 04/23/2020 Abstract [facility]VERSIONS Dental, Provider, DDS Social History Tobacco Use Types Packs/Day Years Used Date Smoking Tobacco: Never Assessed Comments Unknown Sex and Gender Information Value Date Recorded Sex Assigned at Female 05/20/2023 1:47 PM EST Legal Sex Female 8:39 PM EST Gender Identity Female 04/02/2022 8:39 PM EST Sexual Orientation Straight 04/02/2022 8: 39 PM EST documented as of this encounter Plan of Treatment Not on file documented as of this encounter Visit Diagnoses Not on filedocumented in this encounter Care Teams Pizzamaker Relationship Specialty Start Date End Date Dom Miranda LLD [address] [place] [id number] Dentist 08/09/23 Jian Cotter [address] [address] Dental Taxi Cab Driver 08/09/23 Dr. Montes 09/16/22 documented as of this encounter
--- OUTSIDE RECORDS SUMMARY | 2024-12-27 11:07 | XMS_ITS | Patient Health Record ---
Author Organization [facility] Address [address] [address] Care Team Providers Care Research Analyst Name Role Phone Juan Francisco Walters Unavailable [phone] Reason For Referral No Information Medications Medication SIG (Take, Route, Frequency, Duration) Notes Start Date End Date Status Cipro 250 MG Tablet 1 (one) Oral two times daily 04/02/2013 Active Flagyl 375 MG Capsule 1 (one) Oral three times daily 04/02/2013 Active Florastor 250 MG Capsule 1 (one) Oral two times daily preload for electronic prescription 04/02/2013 Active Social History Social History Additional Details Category Social Info Options Details Migrated Social History Migrated Social History Problem Title : Alcohol use, Problem Comment : Never drank., Problem Status : Active,, Problem Title : Caffeine use, Problem Comment : Drinks caffeinated beverages occasionally., Problem Status : Active,, Problem Title : HIV risk factors, Problem Comment : Has never engaged in high risk behavior for STDs., Problem Status : Active,, Problem Title : Illicit drug use, Problem Comment : Never used IV drugs or other recreational drugs., Problem Status : Active,, Problem Title : Living situation, Problem Comment : does not live alone, Problem Status : Active,, Problem Title : Tattoos/Piercings, Problem Status : Active,, Problem Title : Tobacco use, Problem Comment : Never smoker; Never used other tobacco products., Problem Status : Active Problems Problem Type SNOMED Code ICD Code Onset Dates Problem Status W/U Status Risk Notes Problem Ulcerative colitis (87603029) Ulcerative colitis (K51.90) Active confirmed Plan Of Treatment No Information Insurance Providers Payer Name Payer Address Payer Phone Subscriber Number Group Number Insured Name Patient Relationship to Insured Coverage Start Date Coverage End Date [employer]ig[employer] Bruce [id number] [address] [place] [phone] [id number] Raj Ibanez Spouse - patient is the spouse of the insured Medical (General) History Surgical History Surgery Date(Month/Year) Problem Title : Appendectomy, Problem St atus : Active, Problem Title : Arthroscopic Knee Surgery - Both, Problem Status : Active, Problem Title : Hysterectomy, Problem St atus : Active, Problem Title : Other Surgery, Problem S tatus : Active, Problem Title : Tonsillectomy, Problem S tatus : Active, Problem Title : Shoulder Surgery, Proble m Status : Active, Problem Title : Anal Fissure Repair, Pro blem Status : Active, Problem Title : Resection of Large Bowel , Problem Status : Active, Problem Title : Cholecystectomy, Problem Status : Active,
== END 2024-12-27 11:39 | disposition home or self-care (01) ==
LOC: HO.ENCR 10:31
PROVIDERS: PCP Internal Medicine; Visit Provider Internal Medicine Endocrinology, Diabetes & Metabolism
DX: E11.65 Type 2 diabetes mellitus with hyperglycemia (principal)
CPT/HCPCS: 99214; G2211

== ENCOUNTER → 2024-12-27 10:31 | Outpatient (BNVA) | payer MEDICARE, OTHER, SELFPAY | PROVIDERS: PCP Internal Medicine; Visit Provider Internal Medicine Endocrinology, Diabetes & Metabolism | DX: E11.65 Type 2 diabetes mellitus with hyperglycemia (principal); Z79.4 Long term (current) use of insulin | CPT/HCPCS: 82947; 99212 ==